=== PATIENT | female | born 1950 | race Caucasian/White ===

== ENCOUNTER 2018-06-16 21:30 | Emergency (ER) | payer OTHER, MEDICARE ==
[~2018-06-16] VITALS: Ht 170.2 cm; Wt 129.3 kg
[2018-06-16 22:06] VITALS: BP 126/82
--- NOTE | 2018-06-16 23:16 | DIREP ---
PROCEDURE:XRAY HAND MIN 3 VW-RT COMPARISON:None. INDICATIONS:INJURY FINDINGS: BONES:Acute, mildly comminuted and impacted, 5th metacarpal neck fracture. There is a volar and posterior displacement of the distal fracture fragment by 1 cortex with an approximately 6 mm overlap of the fracture fragments. No additional fracture. JOINTS:No dislocation. Mild degenerative changes involving the 1st CMC, STT, thumb MCP, and scattered IP joints. SOFT TISSUES:Mild soft tissue swelling overlying the fracture site. OTHER:No additional findings. CONCLUSION: 1. Acute, mildly comminuted and impacted, right 5th metacarpal neck fracture. 2. Scattered degenerative findings, as above. Dictated by: Ezequiel Castro MD on 06/16/2018 at 11:13 PM
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
[2018-06-17] MEDS ORDERED: MOTRIN ONE (00:03)
--- NOTE | 2018-06-17 00:10 | NUR ---
MED VERBAL ORDER FOR IBUPROFEN 800MG PO GIVEN AT THIS TIME. MED GIVEN AT THIS TIME.
[2018-06-17 00:19] VITALS: BP 126/82
== END 2018-06-17 00:17 | disposition home or self-care (01) ==
LOC: ER 21:30
DX: S62.336A Displaced fracture of neck of fifth metacarpal bone, right hand, initial encounter for closed fracture (principal); E07.9 Disorder of thyroid, unspecified; I10 Essential (primary) hypertension; J45.909 Unspecified asthma, uncomplicated; Z88.5 Allergy status to narcotic agent; Z90.49 Acquired absence of other specified parts of digestive tract; Z91.018 Allergy to other foods; V89.2XXA Person injured in unspecified motor-vehicle accident, traffic, initial encounter; Y93.89 Activity, other specified; Y92.488 Other paved roadways as the place of occurrence of the external cause; Y99.8 Other external cause status
CPT/HCPCS: 29125; 99284; 73130-RT